=== PATIENT | female | born 1990 | race Caucasian/White ===

== ENCOUNTER → 2017-11-24 16:59 | Outpatient (CLI) | payer OTHER, SELFPAY ==
[2017-11-24 18:11] LABS: Group B Strep DNA By PCR Negative (Negative); Internal Control PASS; Probe Check PASS; Specimen Processing Control PASS
== END ==
PROVIDERS: Visit Provider Nurse Practitioner Women's Health
DX: Z34.90 Encounter for supervision of normal pregnancy, unspecified, unspecified trimester (principal)
CPT/HCPCS: 87081; 87653

== ENCOUNTER 2017-12-08 13:15 | Outpatient (CLI) | payer OTHER, SELFPAY ==
[2017-12-08 13:34] VITALS: BMI 33.4
--- NOTE | 2017-12-13 21:50 | OB.TRI.NOTE ---
- Problem List (1) Decreased movement Status: Acute History of Present Illness Date of Service: 12/08/17 Was patient seen by the physician?: No Reason For Visit: DECREASED MOVEMENT Date of Service: 12/08/17 History of Present Illness: decreased movement Allergies nitrofurantoin [From Macrobid] Adverse Reaction (Severe, Verified 12/09/17 03:01) vomiting, shaky NST - FHR Rate Baby A Baseline: 140 Variability:: Moderate Accelerations:: 15 x 15 Decelerations:: None NST Reactive:: Yes FHR Category:: Category I Uterine Activity:: irregular Impression/Plan decreased movement- reactive NST category I
== END 2017-12-08 14:30 | disposition home or self-care (01) ==
LOC: WPOUT 13:20 → WP 13:21
PROVIDERS: Visit Provider Obstetrics & Gynecology
DX: O36.8190 Decreased fetal movements, unspecified trimester, not applicable or unspecified (principal); Z3A.00 Weeks of gestation of pregnancy not specified
CPT/HCPCS: 59025; 59050; 99218; G0378

== ENCOUNTER 2017-12-09 02:25 | Inpatient (IN) | payer OTHER, SELFPAY ==
[2017-12-09 03:00] VITALS: BMI 32.1
[2017-12-09] MEDS: Lactated Ringers 1,000 ML 50 ML IV ×2 (03:05→05:00)
[2017-12-09 03:16] LABS: Hematocrit 33.3 % (37-47); Hemoglobin 11.4 g/dl (12.0-15.0); Mean Corp Hgb Conc 34.2 g/gl (32-36); Mean Corpuscular Hgb 33.9 pg (27.0-32.0); Mean Corpuscular Volume 99.1 fL (81-99); Mean Platelet Vol. 10.5 fl (6.2-12.0); Platelet Count 215 K/mm3 (150-450); RBC Distribution Width CV 14.1 % (11.6-14.6); RBC Distribution Width SD 49.3 fl (35.1-43.9); Red Blood Count 3.36 M/mm3 (4.2-5.4); White Blood Count 16.9 K/mm3 (4.4-11.0)
[2017-12-09 03:19] LABS: Scan Indicated on CBC? Y/N NO
--- NOTE | 2017-12-09 04:01 | PCM.HP.OB ---
- Problem List (1) Supervision of normal Status: Acute Qualifiers: Comment: TARA 12/20/17 boy Pedro Pablo Mary Kate Gerber Raven Dhiraj (2) Active labor at term Status: Acute History Date of Admission: 12/09/17 Final TARA: 12/21/17 Gestational age: 38 Weeks and 2 Days History of this : This is a 27 year-old, G [], P [], at 38 weeks gestational age. Allergies nitrofurantoin [From Macrobid] Adverse Reaction (Severe, Verified 12/09/17 03:01) vomiting, shaky Home Medications: Home Medications vitamin,calcium,tyklbubl-msqz-lxkey acid tablet 1 tab PO QDAY 11/10/17 Smoking Status: Light Smoker (<10/day) Alcohol: None Substance Use Type: Marijuana Heart Tracin moderate variability reactive no decels cat I tracing TOCO Analysis: q 2-3 History Past Pregnancies: Past Pregnancies Delivery Date Name GA/Weeks Outcome Route Weight Gender Labor Length Anesthesia Delivery Location Provider FOB Labs: Mom's Labs & Results 12/09/17 12/09/17 03:05 03:05 WBC 16.9 H RBC 3.36 L Hgb 11.4 L Hct 33.3 L MCV 99.1 H MCH 33.9 H MCHC 34.2 RDW 14.1 RDW Differential 49.3 H Plt Count 215 MPV 10.5 Blood Type Pending Antibody Screen Pending Course Did the patient receive Yes care? Labs Blood Type: O RH: POSITIVE RPR/VDRL/Syphilis Nonreactive Rubella status Immune HbSAg Negative Date Done: 05/20/17 Chlamydia Not Done Gonorrhea Not Done HIV/AIDS Non-Reactive Group B Strep: Negative Current Obstetrical History Gestational Diabetes No Incompetent Cervix No Infertility No IUGR No Macrosomia No Hypertension/Pre-eclampsia No Placenta Previa/Abruption No PTL/PROM No Uterine anomaly No Oligohydramnios No Polyhydramnios No Multiple gestation No Past Medical History Asthma No Diabetes No Hypertension No Heart disease No Mitral valve prolapse No Neurologic/Seizure disorder/ No Migraines Kidney disease No Liver disease No Varicosities No Clotting disorders/Hx of DVT No Thyroid Dysfunction No Other medical diseases No Psychiatric disorders No Major trauma No Abnormal PAP smear No Sleep apnea No Mammogram in the last 2 years No Social History Marital Status: Alleged father Rich Smoking Status Light Smoker (<10/day) Substance Use Type Marijuana Expected Delivery Method: Spontaneous Vaginal Review of Systems Constitutional: Denies: Fever, Malaise Eyes: Denies: Blurred vision, Vision Change HEENT: Denies: Head Aches, Visual Changes Cardiovascular: Denies: Chest Pain, Palpitations Respiratory: Denies: Cough, Shortness of Breath, Wheezing Gastrointestinal: Reports: Abdominal Pain. Denies: Diarrhea, Nausea, Vomiting Genitourinary: Denies: Dysuria, Hematuria Musculoskeletal: Denies: Joint Pain, Muscle pain Skin: Denies: Lesions, Rash Neurological: Denies: Blurred vision, Focal weakness, Headaches Psychiatric: Denies: Anxiety, Depression Endocrine: Denies: Heat/ Cold Intolerance Hematologic/ Lymphatic: Denies: Easy Bruising, Easy Bleeding Physical Exam General: Alert, Cooperative, No apparent distress HEENT: Atraumatic, Normocephalic. Negative for: Thyromegaly, Lymphadenopathy Cardiovascular: Regular rate Lungs: Normal air movement Abdomen: Soft, Non Tender, Gravid Neurological: Deep Tendon Reflexes 2+/4 and Symmetrical, Neuro grossly intact. Negative for: Clonus CARD STRIPPER: Normal external genitalia. Negative for: Vulvar lesions Estimated gestational size: Appropriate for gestational size Presentation: Cephalic Cervix Dilation (cm): 6.5 Station: 0 Effacement (%): 90 Assessment/Plan All Active Problems (Last Reviewed 12/02/17 @ 10:36 by Rocio Cardenas) Active labor at term (Acute) Supervision of normal (Acute) This is a 27 year-old, G [], P [], at 38 weeks gestational age.
[2017-12-09] MEDS: fentaNYL-bupivacaine (epidural) 100 ML BAG EPIDURAL (04:46)
[2017-12-09 06:26] LABS: Amphetamine Urine VISTA NEGATIVE (<1000 ng/mL); Barbiturate Urine VISTA NEGATIVE (< 200 ng/mL); Benzodiazepine Urine VISTA NEGATIVE (< 200 ng/mL); Cocaine Urine VISTA NEGATIVE (< 300 ng/mL); Ecstacy Urine VISTA NEGATIVE (< 500 ng/mL); Methadone Urine VISTA NEGATIVE (< 300 ng/mL); PCP Urine VISTA NEGATIVE (< 25 ng/mL); THC Urine VISTA NEGATIVE (< 50 ng/mL); Vista UDS pH Range 7
[2017-12-09] MEDS: Oxytocin 30 units/NS 500 ml 30 UNITS/500 ML IV.SOLN 334 UNITS IV (06:40)
[2017-12-09] MEDS: Oxytocin 30 units/NS 500 ml 30 UNITS/500 ML IV.SOLN 167 UNITS IV (07:10)
[2017-12-09 08:40] LABS: Chlamydia Trachomatis by PCR Negative (Negative); Neisserai gonorrhoeae by PCR Negative (Negative); Probe Check PASS; Sample Adequacy Control PASS; Specimen Processing Control PASS
[2017-12-09 12:00] VITALS: BP 104/54; PULSE 87; RESP 16; TEMP 36.7; O2SAT 99
[2017-12-09] MEDS: Acetaminophen 325 MG Tablet PO (12:18)
[2017-12-09 16:00] VITALS: BP 109/59; PULSE 79; RESP 17; TEMP 36.7; O2SAT 98
[2017-12-09] MEDS: Naproxen 250 MG Tablet PO (16:49)
--- NOTE | 2017-12-09 17:30 | CASEMGMT ---
Social Work Assessment Labor and Delivery Unit Date of Referral: 12/09/2017 Time of Referral: 1645 Referred By: Dr. Sandoval Date of Intervention: 12/09/2017 Time of Intervention: 1730 Reason for Referral: maternal history of marijuana use in . History obtained from: Medical record and mother of baby (MOB) Nicci Ferguson Household composition: MOB reports to live with and MOBs 3 older children. MOB intends for baby to return to this home at time of discharge. Patient's parent/guardian status: MOB is 27-year-old female, to 39-year-old father of baby (FOB) Dhiraj Ferguson. MOB reports have been for 2 years. MOB denies any form of abuse in relationship with FOB. Orland, Pedro Pablo Ferguson, is the first child together for both parents. FOB has two old children ages 21 and 18. KELSY has 3 other children all from the same father, who is now due to medical issues. Minor children to MOB include: Fabi De La Fuente (born 04[birth year]05-2010), Mary Kate De La Fuente (born 09[birth year]07[birth year]2011), and Anjali De La Fuente (born 01-21-2016). Medical History: MOB is G4, P3 to 4 after delivery of infant. MOB with late transfer of care to [facility] at 34 weeks gestation. MOB reports had previously been seeking care at OBGYN in [place]. Baby azalea Chamorro weighed 7 pounds 9 ounces at . Apgars 8 and 9 at 1 and 5 minutes of life. Educational Status: MOB graduated high school and has some college courses completed. No reported issues with reading, writing, or learning comprehension. Financial Status: MOB stays at home. FOB works 2nd shift at [employer]. Supplies: MOB reports to have needed supplies for baby including bassinet, car seat, clothing, diapers, wipes, crib, formula, bottles, but is planning to breast feed also. Childcare/Caregiver(s): MOB Transportation: No reported issues. Programs/Agencies Involved: MOB denies any agency involvement or need for WIC. Children Services/Legal Issues: MOB reports history of children services involvement after Fabi was born. This was reportedly in [place], [place]. MOB reports was not in a good place and had to move in with MOBs mother for extra support. MOB reports at the time was having a hard time with Lillys father (history of substances use issue which led to eventual kidney failure and in need of dialysis). No reports of any court involvement or child removed from MOBs custody. MOB reports children services involvement that one time only. No reported legal issues for self. Behavioral Health Issues: Mental Health History: MOB reports to have history of depression and has been to counseling in the past. MOB reports has had passive thoughts of dying in the past, no plans, intent, nor any past attempts reported by MOB. MOB reports belief that counseling at this time would be helpful for MOB and states intent to get self some counseling at [facility]. Substance Use History: MOB reports history of marijuana use and did use during this . MOB reports has used recently, within the last month. MOB denies alcohol use in , denies any past attempt of abuse or dependence on alcohol. MOB denies other illicit drug use including cocaine, methamphetamine, or heroin. MOB is a tobacco smoker. Family History: Record indicates MOBs mother has history of Bipolar Disorder Drug Screens: MOB with negative urine drug screen on 12-10-47. Babys urine is negative, and meconium is pending. Family/Social Stressors: MOB moved from [facility] in the last couple of years after becoming involved with FOB. MOB has had an adjustment to the move and has history of depression. MOBs ex-, the father to the older 3 children, is which has been something that has weighed on MOBs emotional health. Support Systems: MOB reports FOB is supportive and anticipates to be helpful with the children after MO returns home. FOB does get to take 10 days off work to help MOB with the transition home with baby and in care of the older children. MOB reports can always call MOBs mom and sister for emotional support. Depression/Shaken Baby/Safe Sleeping: MOB is aware of depression and anxiety due to history of such, reports plan to get back into counseling and states plan to make call on own, after returning home. MOB reports that counseling has been helpful to MOB in the past. MOB reports awareness of safe sleeping and shaken baby prevention. ASSESSMENT: MOB pleasant, cooperative, and nondefensive during social work visit. MOB mood and affect appropriate. MOB attentive to baby, seeming to martines with baby. MOB smiled at baby, touched baby and gazed at baby intermittently. MOB reports to feel a connection to the baby as well. MOB reports to have needs supplies for baby, FOB will be at home for 10 days to help, and MOB states plan to get reconnected to counseling for more support in the period. MOB denies any thoughts of harm to self or others and reports to feel happy. MOB made aware of possibility of children services referral, that waiting on meconium drug screen. MOB reports anticipation that drug screen will come back positive. MOB accepted information about possibility of children services without issue. Safe Plan of Care for infant related to substance use: MOB reports if chooses to use marijuana in the future, then would not use around the children. MOB reports would leave the children in the care of current FOB, as the FOB reportedly does not use any type of substances. MOB expressed understanding to social work education that breast feeding, and marijuana use is not recommended; encouraging cessation of this substance, especially while breast feeding. PLAN: MOB and baby to home at time of discharge. MOB has been given depression packet. MOB has been given [facility] Resource packet. Will monitor for meconium drug screen results and refer to children services as indicated. No other services requested or indicated. -MILTON Valentine, MOTOR DRIVER
[2017-12-09 21:15] VITALS: BP 92/54; PULSE 82; RESP 18; TEMP 36.3
[2017-12-09] MEDS: Acetaminophen 500 MG Tablet 1000 MG PO (22:00)
[2017-12-10 01:54] VITALS: BP 93/54; PULSE 87; RESP 18; TEMP 36.7
[2017-12-10 04:50] VITALS: BP 99/64; PULSE 77; RESP 16; TEMP 36.1
[2017-12-10] MEDS: Naproxen 250 MG Tablet PO (05:42)
--- NOTE | 2017-12-10 08:31 | CASEMGMT ---
Social Work Note SW received consult for substance abuse. Per Willow PALOMARES, CORPORATE LOGISTICS MANAGER report she saw pt yesterday and will be calling [facility] next week. Pt also states that she will be making herself a counseling appointment. No other needs identified at this time. Daisy Cervantes CORPORATE LOGISTICS MANAGER, MANAGER DATABASE
[2017-12-10 09:00] VITALS: BP 113/71; PULSE 70; RESP 16; TEMP 36.1; O2SAT 98
--- NOTE | 2017-12-10 10:26 | PCM.OB.VAG ---
- Problem List (1) Supervision of normal Status: Acute Qualifiers: Comment: TARA 12/20/17 boy Mary Kate Dash Raven Dhiraj (2) Active labor at term Status: Acute Vaginal Delivery Maternal Presentation: Active Labor ial 7-8 cm Amniotic Fluid Description: Clear Final TARA: 12/21/17 Gestational age: 38 Weeks and 3 Days Date of Procedure: 12/09/17 Pre-Operative Diagnosis: ial Post-Operative Diagnosis: same Surgery/ Procedure Performed: Spontaneous Vaginal Delivery Type of Anesthesia: Epidural Description of Procedure: patient proceeded to complete dilation delivered uncomplicated no lacerations Presentation: HAILEY Placental Delivery Description: Spontaneous Placenta Disposition: [facility] Cord Entanglement: None A gender: Male Episiotomy Description: None Laceration: None Medications given after delivery: IV Pitocin Complications: None
--- NOTE | 2017-12-10 10:29 | PCM.DCVAG ---
Discharge Diet: No Restrictions Discharge Activity: Return to Normal Activity, May not drive while taking narcotic pain medications., May Shower May resume sexual activity in: 4-6 weeks Call your doctor if your incision/area has: Continuous Slow Oozing, Sudden Increased Bleeding, Increased Pain/ Swelling, Increased Redness, Foul Smelling Discharge Additional Instructions: If you experience any of the following, contact your healthcare provider. Bleeding that soaks a pad every hour for 2 hours Fever 100.4 or higher Unrelieved incision or abdominal pain Swelling, redness, discharge or bleeding from your incision or episiotomy site Your incision begins to separate Problems urinating (including inability to urinate or burning while urinating). Visual changes Severe headache Flu-like symptoms Pain or redness in one of both of your breasts Pain, warmth, tenderness or swelling in your legs, especially the calf area Frequent nausea and vomiting Symptoms of depression or anxiety If you experience any of the following, call 911 or go to the nearest Emergency Room. Chest pain Problems breathing Seizure activity Partial or complete paralysis of a body part, slurred speech, weakness or drooping of the face, or a sudden inability to walk or hold your balance Allergies/Adverse Reactions: Allergies nitrofurantoin [From Macrobid] Adverse Reaction (Severe, Verified 12/09/17 03:01) vomiting, shaky Medications to take at Discharge vitamin,calcium,awedxtaq-fmtg-lcetx acid tablet 1 tab PO QDAY 11/10/17 Please Follow Up With: Maria Antonia Sandoval MD - [phone] When: Call to make an appointment with your doctor in 6 weeks. If you had elevated Blood pressure or 4th degree laceration you will need to be seen in 2 weeks. Test Results: Test results from this visit will be discussed in further detail at your follow-up appointment, if applicable.
--- NOTE | 2017-12-10 10:32 | PCM.PN.OB ---
Patient Problems: Active and Suspected Problems (Last Reviewed 12/02/17 @ 10:36 by Rocio Cardenas) Active labor at term (Acute) Subjective: doing well n ocomplaints - Physical Exam General: Alert Vital Signs Temp Pulse Resp BP Pulse Ox 97.0 F L 70 16 113/71 98 12/10/17 09:00 12/10/17 09:00 12/10/17 09:00 12/10/17 09:00 12/10/17 09:00 Oxygen Delivery Method Room Air Weight: 187 lb 6.287 oz Body Mass Index (BMI) 32.1 Intake and Output for Last 24 Hours 12/08/17 12/09/17 12/10/17 23:59 23:59 23:59 Intake Total 1864 / 1864 Output Total 1400 / 1400 Balance 464 / 464 Medical Necessity - Tobacco Use Smoking Status: Light Smoker (<10/day) Assessment/Plan All Active Problems (Last Reviewed 12/02/17 @ 10:36 by Rocio Cardenas) Active labor at term (Acute) Supervision of normal (Acute) s/p routine care dc home today
[2017-12-10] MEDS: Prenatal Vits Tablet 1 TABLET PO (11:27)
[2017-12-10 11:42] VITALS: BP 121/66; PULSE 74; RESP 20; TEMP 36.1; O2SAT 98
[2017-12-10 13:30] VITALS: BP 121/66; PULSE 74; RESP 20; TEMP 36.1; O2SAT 98
--- NOTE | 2017-12-20 13:38 | CASEMGMT ---
Social Work Note Labor and Delivery Unit Baby's meconium drug screen is negative. Urine drug screens for mom and baby at time of delivery negative. Based on negative results, no further referrals are indicated. No reports of any concerns related to mother/child interactions prior to discharge and present and supportive during hospital stay (per nursing documentation). MOB has also stated plan to address mental health follow up on own for added support. -JELANI Valentine, GRILL ATTENDANT
== END 2017-12-10 13:30 | disposition home or self-care (01) | DRG 775 ==
PROVIDERS: Admitting Provider Obstetrics & Gynecology; Visit Provider Obstetrics & Gynecology
DX: O99.334 Smoking (tobacco) complicating childbirth (principal); Z37.0 Single live birth; F17.200 Nicotine dependence, unspecified, uncomplicated; Z3A.38 38 weeks gestation of pregnancy
CPT/HCPCS: 59050; 80307; 85027; 86850; 86900; 87491; 87591; 99218; J7120; G0378

== ENCOUNTER 2019-06-16 14:30 | Emergency (ER) | payer OTHER, SELFPAY ==
[2019-06-16 14:31] VITALS: BP 148/100; PULSE 119; RESP 18; TEMP 37.5; O2SAT 100; BMI 27.2
[2019-06-16 14:49] VITALS: PULSE 119; TEMP 37.5
--- NOTE | 2019-06-16 14:55 | CT_ITS ---
STUDY: CT TEMPORAL BONES WITHOUT CONTRAST REASON FOR EXAM: Female, 29 years old. RT EAR INFECTION RADIATION DOSAGE (If Supplied By Facility): CTDIvol = ( 67.58 ) mGy, DLP = ( 873.91 ) mGycm TECHNIQUE: The patient was scanned in a multi detector CT scanner. High resolution transaxial imaging was performed without the administration of intravenous contrast material. Sagittal and coronal images were reconstructed. Individualized dose optimization techniques were used for this CT. COMPARISON: None. FINDINGS: RIGHT TEMPORAL BONE There is thickening of the right external auditory canal soft tissues with complete obstruction. There are no demonstrated discrete fluid collections to suggest abscess. There is complete opacification of the middle ear. The ossicles are unremarkable. There is no evidence of bony erosions to suggest an aggressive disease. Normal right posterior, superior and lateral semicircular canals. Normal right vestibule and cochlea. There is opacification of the right mastoid air cells without coalescence. LEFT TEMPORAL BONE Normal left external auditory canal. Normal malleus, incus and stapedius. Normal malleoincudal and incudostapedial articulations. Normal epitympanum, mesotympanum, and hypotympanum. Normal left posterior, superior and lateral semicircular canals. Normal left vestibule and cochlea. Normal tympanic segment of the facial nerve. Normal Korner''s septum, tegmen tympani, arcuate eminence and aditus ad antrum. Normal left mastoid air cells. Normal left petrous apex. Normal left internal auditory canal. Normal left vestibular and cochlear aqueducts. There is moderate paranasal sinus disease. CT/Orb Sella Post Fossa Ear w/o IMPRESSION: Severe right external ear soft tissue swelling without demonstrated abscess. Severe glen-mastoid disease. No bony erosions. Differential considerations are infectious, inflammatory and neoplastic disease. Follow up to resolution is recommended. Electronically Signed: Carla Chan MD at 15:44 EST Tel , Service support ,
[2019-06-16 15:07] VITALS: BP 136/85; PULSE 103; RESP 20; TEMP 36.7; O2SAT 97
[2019-06-16] MEDS: Ondansetron 4 MG/2 ML Vial IV (15:14)
[2019-06-16] MEDS: Morphine 4 MG/ML Syringe IV ×2 (15:14→16:36)
[2019-06-16 15:22] LABS: Absolute Lymphocyte Count 1.34 X10^3/uL (0.83-4.51); Absolute Neutrophil Count 13.9 X10^3/uL (2.0-7.7); Basophil# 0.06 X10^3/uL; Basophil% 0.4 % (0-1); Eosinophil# 0.08 X10^3/uL; Eosinophils% 0.5 % (0-5); Hematocrit 43.4 % (37-47); Hemoglobin 14.3 g/dL (12.0-15.0); Lymphocyte # 1.34 X10^3/ul (4.0); Mean Corp Hgb Conc 32.9 g/dL (32-36); Mean Corpuscular Hgb 31.6 pg (27.0-32.0); Mean Corpuscular Volume 95.8 fL (81-99); Mean Platelet Vol. 9.3 fl (6.2-12.0); Monocyte# 1.34 X10^3/uL; NRBC Flagged by Analyzer 0 % (0-5); Neutrophil # 13.92 X10^3/uL (2.7-7.7); Neutrophil % 82.7 % (47-70); Platelet Count 274 K/mm3 (150-450); RBC Distribution Width CV 13.8 % (11.6-14.6); RBC Distribution Width SD 48.7 fl (35.1-43.9); Red Blood Count 4.53 M/mm3 (4.2-5.4); White Blood Count 16.8 K/mm3 (4.4-11.0)
[2019-06-16 15:40] LABS: Anion Gap 7 (5-15); BUN 10 mg/dL (7-18); BUN/Creat Ratio 13.6 RATIO (10-20); Calcium,Total 9.3 mg/dL (8.5-10.1); Chloride 109 mmol/L (98-107); Creatinine, Serum 0.74 mg/dL (0.55-1.02); EST Glomerular Filtration Rate 98 mL/min (>60); Est Glom Filt Rate - Afr Amer 119 mL/min (>60); Estimated Creatinine Clearance 112.14 ml/min; Glucose 98 mg/dL (74-106); Potassium 3.8 mmol/L (3.5-5.1); Sodium Level 139 mmol/L (136-145)
--- NOTE | 2019-06-16 16:17 | ED.VISSUMM ---
- ER Visit Summary Date of Service: 06/16/19 Chief Complaint: [Right ear pain] History of Present Illness: The patient is a 29 F [presents the emergency department complaint of right ear pain for about a week and a half. Patient states that she has had drainage from the ear. She denies any trauma to it. Patient was seen at [facility] twice in the last 24 hours. Patient was diagnosed with an externa otitis and started on drops. Second time she went and they put a wick in her ear but she states when she got home the wick fell out. Patient using ibuprofen and Tylenol for discomfort but having severe pain. She denies any fevers. She denies chills or sweats.] Physical Examination: [HEENT-PERRLA, EOMI. Cranial nerves II through XII grossly intact. Left TM clear. Right ear-patient has pain with traction on pinna. The ear canal is swollen almost completely shut. There is some yellowish drainage noted from the ear. He has tenderness diffusely over the mastoid. No facial cellulitis noted.. Mucous membranes moist. No adenopathy. Cardiovascular-regular rate and rhythm without murmur or ectopy Lungs-clear to auscultation, chest wall stable without crepitus or subcu emphysema Abdomen-normoactive bowel sounds, soft, nontender, no rebound or rigidity, no peritoneal signs. Extremities-intact ?4, normal range of motion, normal pulses, atraumatic] Test Results: [CBC with differential obtained showed a white count of 16.8, hemoglobin 14, hematocrit 43, placed to 74. Chemistries unremarkable. CT scan of the right ear and mastoid obtained showed severe right external ear soft tissue swelling without demonstrated abscess. There was severe Odo mastoid disease and no bony erosions noted.] Emergency Department Course and Treatment: [Patient case was discussed with ENT physician on-call Dr. Perera who asked that I give patient a dose of IV antibiotic and place another wick in the right ear. I was asked to change patient to Ciprodex drops and also Cipro by mouth. Patient will be given a prescription for [place] for pain for home. Patient will follow-up with his office.] Treatment Plan: [Patient will be switched to Ciprodex drops as well as oral Cipro and given a prescription for [place] for pain. Patient to follow-up with Dr. Perera in the office.] Disposition: [Discharged home in stable condition] Impression: [Right otitis externa Right mastoiditis] This note was generated with [employer] dictation software. It may contain incorrect words, spelling, and punctuation that were not noted in review of the chart prior to signing ED Disposition - Plan for ED Patient: Referrals: Care Physician,No Primary [Primary Care Provider] -
--- NOTE | 2019-06-16 16:19 | ED.DEP ---
ED Disposition - Plan for ED Patient: Instructions: EXTERNAL EAR INFECTION (Adult) Prescriptions: Ciprofloxacin [Cipro] 500 mg PO BID #20 tab Prescription Printed Ciprofloxacin HCl/Dexameth [Ciprodex Otic Suspension] 4 drp OTIC (EAR) BID #1 bottle Prescription Printed Hydrocodone Bitart/Apap 5-325 [[place] 5MG-325MG] 1 tab PO Q4H PRN PRN 2 Days #14 tab PRN Reason: Pain Prescription Printed Referrals: Care Physician,No Primary [Primary Care Provider] - Honorio Rojas MD [STAFF PHYSICIAN] - 3-5 Days
[2019-06-16 16:49] VITALS: BP 115/49; PULSE 99; RESP 16; TEMP 36.8; O2SAT 98
[2019-06-16 17:52] VITALS: BP 120/68; PULSE 96; RESP 16; O2SAT 99
== END 2019-06-16 17:53 | disposition home or self-care (01) ==
PROVIDERS: Emergency Provider Emergency Medicine
DX: H60.91 Unspecified otitis externa, right ear (principal); H70.91 Unspecified mastoiditis, right ear; Z72.0 Tobacco use
CPT/HCPCS: 70480; 80048; 85025; 96365; 96374; 96375; 96376; 99283; J7050; A4216; J2405

== ENCOUNTER 2021-07-06 09:01 | Emergency (ER) | payer MEDICAID, SELFPAY ==
[2021-07-06 09:03] VITALS: BP 139/92; PULSE 105; RESP 17; TEMP 36.4; O2SAT 99; BMI 29.5
--- NOTE | 2021-07-06 09:27 | EDS_ITS ---
HPI History of Present Illness Chief Complaint: Complaint Informant: patient Onset/Context/Timing Onset: Today Context: Gradual Onset Timing: Continuous Quality: Burning, aching, sharp Location: Pelvis Worsened by: Urination Relieved by: Nothing Narrative Narrative: Patient presents with pelvic pain, nausea, and hematuria that began today. Patient states she was having some pain in her back over the last couple of days. Patient states that since she woke up today her pelvic pain has gotten worse. Patient states she has some sharp pain whenever she urinates. Patient describes her pain as burning and aching. Patient denies any abnormal vaginal bleeding or discharge. Patient denies any diarrhea. Patient admits to nausea but denies any vomiting. [facility] Medical History (Updated 07/06/21 @ 12:[address] Narinder Newton DO) Kidney stones Home Medications sulfamethoxazole-trimethoprim 1 tab PO BID #6 tablet 07/06/21 [Rx Last Taken Unknown] Allergy/AdvReac Type Severity Reaction Status Date / Time nitrofurantoin AdvReac Severe vomiting, Verified 07/06/21 09:01 [From Macrobid] david Family History Father Cancer, Onset Age: 43 Kidney Uncle Cancer, Onset Age: 30 skin Mother COPD (chronic obstructive pulmonary disease) IBS (irritable bowel syndrome) CVA (cerebral vascular accident) Bipolar 1 disorder, depressed, moderate Chronic fatigue fibromyalgia syndrome Alzheimer's dementia Surgical History (Updated 07/06/21 @ 09:[address] Narinder Newton DO) Hx of tonsillectomy Social History (Updated 07/06/21 @ 09:[address] Narinder Newton DO) number of children: 3 current occupational status: unemployed Smoking Status: Current every day smoker tobacco type: cigarettes Smoking packs per day: 1 Smoking cigarettes per day: 20.0 and e-cigarettes Electronic Cigarette Use: with nicotine alcohol intake: never substance use type: does not use caffeine: Yes Type: coffee and tea Number of servings: 4 what type of physical activity do you participate in: walking frequency: daily seatbelt use: always do you feel safe at home: Yes additional social history: Dhiraj employed by [employer] ED Constitutional Constitutional ED: Denies chills or fever(s) Eyes Eyes: Denies blurry vision or change in vision ENT ENT ED: Denies rhinorrhea or sore throat Cardiovascular Cardiovascular: Denies chest pain or palpitations Respiratory/Chest Respiratory/Chest: Denies cough or dyspnea Gastrointestinal Gastrointestinal: Reports abdominal pain and nausea; Denies vomiting Genitourinary Genitourinary ED: Reports dysuria and hematuria Musculoskeletal Musculoskeletal: Reports back pain and neck pain Integumentary Denies abscess or rash Neurologic Neurologic: Reports headache(s); Denies weakness Allergic/Immunologic Allergic/Immunologic ED: Denies mouth swelling or urticaria EXAM Physical Exam Const Vital Signs: 07/06/21 09:03 07/06/21 09:54 07/06/21 11:01 Temperature 97.6 F L 97.6 F L Temperature Source Temporal Temporal Pulse Rate 105 H 105 H 78 Respiratory Rate 17 17 14 Blood Pressure 139/92 H 139/92 H 134/84 H Blood Pressure Mean 107 107 100 Pulse Ox 99 99 98 Oxygen Delivery Method Room Air Room Air Room Air Positive well nourished and well developed General Appearance ED: well developed HEENT Reports moist mucous membranes Neck supple and no JVD Resp normal respiratory effort and clear to auscultation bilaterally Cardio regular rate, regular rhythm and no murmurs GI normal to inspection, nondistended, normoactive bowel sounds Palpation: soft and tender LLQ, RLQ and suprapubic; Negative for guarding or rebound tenderness present Extremity normal to inspection General Extremety ED: Negative for edema or tenderness General Extremity: Negative for edema Neuro oriented x3, CN's II-XII intact bilaterally and no sensory deficits noted Sensorium / Orientation: alert Motor Exam: strength 5/5 throughout Psych mental status grossly normal Skin no rashes or lesions noted MDM MDM MDM Narrative Medical decision making narrative: CBC shows mild leukocytosis of 11.6. Comprehensive metabolic profile was within normal limits. Serum hCG was negative. Urinalysis shows positive nitrites with leukocyte esterase of 525-50 white blood cells. There is 4+ bacteria. Urine culture was ordered. CT scan of the abdomen and pelvis was obtained. There are no ureteral calculi or evidence of obstruction. There is no acute intra-abdominal process noted. This was interpreted by the radiologist and reviewed by myself. Patient was given a dose of Bactrim here. Patient was given a prescription for Bactrim. Patient was instructed to drink plenty of fluids. Patient was instructed to follow-up with her primary care physician in 5 to 7 days. Patient understood and was agreeable with the plan. All questions were answered. Lab Data Attestation: I reviewed the patient's lab results. Labs: Laboratory Results - last 24 hr 07/06/21 07/06/21 07/06/21 09:50 09:50 09:50 WBC 11.6 H RBC 4.68 Hgb 15.5 H Hct 45.5 MCV 97.2 MCH 33.1 H MCHC 34.1 RDW Std Deviation 46.3 H RDW Coeff of Josh 12.9 Plt Count 277 MPV 9.4 Immature Gran % (Auto) 0.300 Neut % (Auto) 69.7 Lymph % (Auto) 15.9 L Ponce % (Auto) 10.1 H Eos % (Auto) 3.3 Baso % (Auto) 0.7 Absolute Neuts (auto) 8.1 H Absolute Lymphs (auto) 1.85 Nucleated RBC % 0 Sodium 138 Potassium 3.4 L Chloride 106 Carbon Dioxide 27.0 Anion Gap 5 BUN 14 Creatinine 0.94 Estim Creat Clear Calc 74.19 Est GFR (MDRD) Af Amer 88 Est GFR (MDRD) Non-Af 73 BUN/Creatinine Ratio 14.8 Glucose 95 Calcium 9.4 Total Bilirubin 0.50 AST 15 ALT 22 Alkaline Phosphatase 68 Total Protein 8.7 H Albumin 4.5 Globulin 4.2 Albumin/Globulin Ratio 1.1 Serum , Qual NEGATIVE Urine Color Urine Clarity Urine pH Ur Specific [place] Urine Protein Urine Glucose (UA) Urine Ketones Urine Occult Blood Urine Nitrite Urine Bilirubin Urine Urobilinogen Ur Leukocyte Esterase Urine RBC Urine WBC Ur Squamous Epith Cells Urine Bacteria Urine Mucus 07/06/21 10:01 WBC RBC Hgb Hct MCV MCH MCHC RDW Std Deviation RDW Coeff of Josh Plt Count MPV Immature Gran % (Auto) Neut % (Auto) Lymph % (Auto) Ponce % (Auto) Eos % (Auto) Baso % (Auto) Absolute Neuts (auto) Absolute Lymphs (auto) Nucleated RBC % Sodium Potassium Chloride Carbon Dioxide Anion Gap BUN Creatinine Estim Creat Clear Calc Est GFR (MDRD) Af Amer Est GFR (MDRD) Non-Af BUN/Creatinine Ratio Glucose Calcium Total Bilirubin AST ALT Alkaline Phosphatase Total Protein Albumin Globulin Albumin/Globulin Ratio Serum , Qual Urine Color [place] Urine Clarity Sl Cloudy Urine pH 6.5 Ur Specific [place] 1.025 Urine Protein 100 H Urine Glucose (UA) Normal Urine Ketones 5 H Urine Occult Blood 250 H Urine Nitrite Positive H Urine Bilirubin 1 H Urine Urobilinogen 1 H Ur Leukocyte Esterase 500 H Urine RBC 0-5 SEEN Urine WBC 25-50 SEEN Ur Squamous Epith Cells 0-5 SEEN Urine Bacteria 4+ Urine Mucus 0 SEEN Radiography Diagnostic Testing: Clinical Impression(s) from Imaging Studies Abdomen/Pelvis CT 07/06/21 09:31 IMPRESSION: No hydronephrosis or urinary tract calcifications. Electronically Signed: Chris Blankenship MD ([place]) at 10:50 EDT Reading Location ID and State: [address] [place] [address] , Service support , Discharge Plan Triage Chief Complaint: Complaint ED Provider: Narinder Newton Dx/Rx/DC Orders Clinical Impression: Urinary tract infection Instructions: ED CYSTITIS Female Adult Prescriptions: New sulfamethoxazole-trimethoprim [sulfamethoxazole-trimethoprim] 1 TABLET tablet 1 tab PO BID Qty: 6 RF: 0 Primary Care Provider: Care Physician,No Primary Referrals: Mayda Mclain MD [STAFF PHYSICIAN] - 3-5 Days Care Physician,No Primary [Primary Care Provider] - Disposition Disposition: Home, Self Care
--- NOTE | 2021-07-06 09:31 | CT_ITS ---
STUDY: CT ABDOMEN AND PELVIS WITHOUT CONTRAST REASON FOR EXAM: Female, 31 years old. Hematuria with low back pain RADIATION DOSAGE (If Supplied By Facility): CTDIvol = ( 7.82 ) mGy, DLP = ( 367.16 ) mGycm TECHNIQUE: Transaxial images were obtained from the dome of the diaphragm to the symphysis pubis without oral contrast, and without intravenous contrast. Sagittal and coronal images were reconstructed. Individualized dose optimization techniques were used for this CT. COMPARISON: None. FINDINGS: The visualized lung bases are unremarkable. The visualized portions of the heart are within normal limits. Normal liver. Normal gallbladder and extrahepatic biliary system. Normal spleen. Normal pancreas. Normal bilateral adrenal glands. Normal right kidney. Normal left kidney. Normal visualized stomach. Normal small intestine. Normal colon. The appendix is visualized and appears normal. Normal abdominal aorta. Normal inferior vena cava. Normal retroperitoneum. Nondistended urinary bladder. 3.1 cm simple appearing cyst of the right ovary without pelvic induration or free fluid. ACR White Paper guidelines (Hairston, et. al. JACR 2020;17(2):248-254) suggest no follow-up is necessary. Normal abdominal wall. Normal osseous structures. CT/Abdomen/Pelvis without Cont IMPRESSION: No hydronephrosis or urinary tract calcifications. Electronically Signed: Chris Blankenship MD ([place]) at 10:50 EDT ,
[2021-07-06 09:54] VITALS: BP 139/92; PULSE 105; RESP 17; TEMP 36.4; O2SAT 99
[2021-07-06 10:02] LABS: Absolute Lymphocyte Count 1.85 X10^3/uL (0.83-4.51); Absolute Neutrophil Count 8.1 X10^3/uL (2.0-7.7); Basophil# 0.08 X10^3/uL; Basophil% 0.7 % (0-1); Eosinophil# 0.38 X10^3/uL; Eosinophils% 3.3 % (0-5); Hematocrit 45.5 % (37-47); Hemoglobin 15.5 g/dL (12.0-15.0); Lymphocyte # 1.85 X10^3/ul (0.83-4.51); Lymphocyte % 15.9 % (19-41); Mean Corp Hgb Conc 34.1 g/dL (32-36); Mean Corpuscular Hgb 33.1 pg (27.0-32.0); Mean Corpuscular Volume 97.2 fL (81-99); Mean Platelet Vol. 9.4 fl (6.2-12.0); Monocyte# 1.17 X10^3/uL; Monocyte% 10.1 % (0-10); NRBC Flagged by Analyzer 0 % (0-5); Neutrophil # 8.09 X10^3/uL (2.7-7.7); Neutrophil % 69.7 % (47-70); Platelet Count 277 K/mm3 (150-450); RBC Distribution Width CV 12.9 % (11.6-14.6); RBC Distribution Width SD 46.3 fl (35.1-43.9); Red Blood Count 4.68 M/mm3 (4.2-5.4); White Blood Count 11.6 K/mm3 (4.4-11.0)
[2021-07-06 10:07] LABS: Mucous, Urine 0 SEEN /hpf (<or=2+)
[2021-07-06 10:08] LABS: Glucose, Dipstick Normal (Normal); Ketone-Dipstick 5 mg/dl (Negative); Leukocyte Esterase-Dipstick 500 /ul (Negative); Nitrite-Dipstick Positive (Negative); Occult Blood-Urine 250 /ul (Negative); Protein-Dipstick 100 mg/dl (Negative); Specific Gravity, Urine 1.025 (1.002-1.030); Urine Urobilinogen 1 mg/dl (Normal); Urine pH 6.5 (5.0 - 8.0)
[2021-07-06 10:12] LABS: Color, Urine Amber (Yellow); Urine Bilirubin Dipstick 1 mg/dL (Negative); Urine Clarity Sl Cloudy (Clear)
[2021-07-06 10:14] LABS: Bacteria 4+ /hpf (None Seen); Red Blood Cells-Urine 0-5 SEEN /hpf (0-5); Squamous Epithelial Cells - UA 0-5 SEEN /hpf (5-10); White Blood Cells 25-50 SEEN /hpf (0-5)
[2021-07-06 10:26] LABS: Internal QC Validated? YES +Cl - CLEAR BKGD; Pregnancy, Serum, hCG Quali. NEGATIVE Negative
[2021-07-06 10:30] LABS: ALB/GLOB Ratio 1.1 RATIO (0.9-2.4); AST(SGOT) 15 U/L (15-37); Alanine Aminotransfer ALT/SGPT 22 U/L (13-56); Albumin, Serum 4.5 g/dL (3.2-5.0); Alkaline Phosphatase 68 U/L (45-117); Anion Gap 5 (5-15); BUN 14 mg/dL (7-18); BUN/Creat Ratio 14.8 RATIO (10-20); Calcium,Total 9.4 mg/dL (8.5-10.1); Chloride 106 mmol/L (98-107); Creatinine, Serum 0.94 mg/dL (0.55-1.02); EST Glomerular Filtration Rate 73 mL/min (>60); Est Glom Filt Rate - Afr Amer 88 mL/min (>60); Estimated Creatinine Clearance 74.19 ml/min; Globulin 4.2 g/dL (2.2-4.2); Glucose 95 mg/dL (74-106); Potassium 3.4 mmol/L (3.5-5.1); Protein, Total 8.7 g/dL (6.4-8.2); Sodium Level 138 mmol/L (136-145)
[2021-07-06 11:01] VITALS: BP 134/84; PULSE 78; RESP 14; O2SAT 98
[2021-07-06 12:45] VITALS: BP 125/68; PULSE 86; RESP 144; TEMP 37.1; O2SAT 98
[2021-07-06] MEDS: Smz/Tmp Ds Tablet 1 TABLET PO (12:46)
== END 2021-07-06 12:48 | disposition home or self-care (01) ==
PROVIDERS: Emergency Provider Emergency Medicine; Visit Provider Emergency Medicine
DX: N39.0 Urinary tract infection, site not specified (principal); F17.210 Nicotine dependence, cigarettes, uncomplicated; Z87.442 Personal history of urinary calculi; F17.290 Nicotine dependence, other tobacco product, uncomplicated
CPT/HCPCS: 74176; 80053; 81001; 84703; 85025; 87086; 87088; 99284; A4216